=== PATIENT | female | born 1970 | race Caucasian/White ===

== ENCOUNTER 2019-02-10 15:13 | Emergency (ER) | payer OTHER ==
[~2019-02-10] VITALS: Ht 162.6 cm; Wt 62.1 kg
[~2019-02-10 15:13] MED LIST: BENAZEPRIL HCL10 MG PO; BENTYL20 MG PO; CIPROFLOXACIN500 M1 PO; HYDROCHLOROTHIA25 M2 PO; LO LOESTRIN FE1 EACH PO; LOVASTATIN 20 M20 MG PO; METFORMIN HCL500 MG PO; NOHOMEMEDICATIONS; NORTRIPTYLINE H10 M1; OMEPRAZOLE40 MG PO; PREDNISONE 20 M20 M1 PO; PROZAC10 MG PO; VENTOLIN HFA 1818 GM INH; ZOCOR40 MG PO; ZPAK PO; [UNRECOGNIZED DRUG - REMARK]
[2019-02-10] MEDS ORDERED: XANAX 0.25 MG0.25 MG PO (15:34)
[2019-02-10] MEDS ORDERED: ADIPEX-P37.5 M1 PO (15:35)
[2019-02-10 15:53] LABS: ABSOLUTE BASOPHILS 0.1 thou/uL (0.0-0.2); ABSOLUTE EOSINOPHILS 0.1 thou/uL (0.0-0.7); ABSOLUTE MONOCYTES 0.5 thou/uL (0.0-1.2); BASOPHILS 0.8 %; EOSINOPHILS 1.9 %; HEMATOCRIT 37.7 % (37.0-47.0); LYMPHOCYTES 30.4 %; MCH 29.3 pg (26.0-34.0); MCHC 34.4 g/dL (28.0-37.0); MCV 85.2 fL (80.0-100.0); MONOCYTES 6.8 %; NUCLEATED RBCS 0 /100WBC; PLATELET COUNT* 199 thou/uL (150-400); POLYS 60.1 %; RBC 4.43 mil/uL (4.20-5.00); RDW-CV 13.9 % (10.5-14.5); WBC 6.7 thou/uL (4.0-11.0)
[2019-02-10 16:11] LABS: ALBUMIN 3.3 g/dL (3.4-5.0); ALKALINE PHOSPHATASE 57 U/L (46-116); ANION GAP 12 mmol/L (7-16); BUN 12 mg/dL (7-18); CALCIUM 8.8 mg/dL (8.5-10.1); CHLORIDE 106 mmol/L (98-107); CO2 26 mmol/L (21-32); CREATININE 0.9 mg/dL (0.6-1.3); GLUCOSE 103 mg/dL (70-99); POTASSIUM 3.3 mmol/L (3.5-5.1); SGOT 16 U/L (15-37); SGPT 18 U/L (30-65); SODIUM 144 mmol/L (136-145); TOTAL BILIRUBIN 0.2 mg/dL (<0.1-1.0); TROPONIN-I LEVEL <0.06 ng/mL (<0.06)
[2019-02-10 17:39] VITALS: BP 177/82
--- NOTE | 2019-02-11 09:59 | EKG ---
[place] [address] ELECTROCARDIOGRAM REPORT Name: JANE MARIE Room: [facility]#: [id number] Admission: 02/10/19 Attend Phys: Discharge: 02/10/19 Date of : 66 Report #: [id number] THIS REPORT FOR: //name// [facility] ED Test Date: 2019-02-10 Test Time: 15:36:46 Pat Name: JANE MARIE Department: Room: Gender: F Heat [employer] Supervisor: LEE ANN : 1970 Requested By: Kendra Ulloa Order Number: [id number] MD: Brayden Jones Measurements Intervals [place] Rate: 91 P: 54 MA: 159 QRS: 8 QRSD: 102 T: 41 QT: 375 QTc: 462 Interpretive Statements Sinus rhythm Abnormal inferior Q waves Compared to ECG 01/26/2017 11:24:42 no change Electronically Signed On 02-11-2019 9:59:34 CDT by Brayden Jones [email or web address] <ELECTRONICALLY SIGNED> By: Brayden Jones MD, [facility] 02/11/19 0959 D: 03/1535 35 Brayden Jones MD, FACC /EPI
== END 2019-02-10 17:40 | disposition home or self-care (01) ==
LOC: M.ERS 15:13
PROVIDERS: Physician Assistant
DX: I10 Essential (primary) hypertension (principal); R07.89 Other chest pain; E78.00 Pure hypercholesterolemia, unspecified; Z88.5 Allergy status to narcotic agent